=== PATIENT | male | born 2000 | race Caucasian/White ===

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

== ENCOUNTER 2022-05-08 09:24 | Emergency (ER) | payer OTHER ==
[~2022-05-08] VITALS: Ht 160 cm; Wt 57.6 kg
== END 2022-05-08 14:15 | disposition home or self-care (01) ==
LOC: EMR PED 09:24
DX: A90 Dengue fever [classical dengue] (principal); J02.9 Acute pharyngitis, unspecified; D69.6 Thrombocytopenia, unspecified; R05.9 Cough, unspecified; Z20.822 Contact with and (suspected) exposure to COVID-19

== ENCOUNTER 2022-11-13 12:01 | Emergency (ER) | payer OTHER ==
[~2022-11-13] VITALS: Ht 165.1 cm; Wt 61.2 kg
[2022-11-13] MEDS ORDERED: ADVIL DUAL ACT1 EACH PO (22:00)
[2022-11-13] MEDS ORDERED: BENADRYL25 MG PO (22:00)
== END 2022-11-13 22:11 | disposition home or self-care (01) ==
LOC: EMR PED 12:01
DX: R51.9 Headache, unspecified (principal); Z20.822 Contact with and (suspected) exposure to COVID-19

== ENCOUNTER 2024-02-28 13:35 | Emergency (ER) | payer OTHER ==
[~2024-02-28] VITALS: Ht 162.6 cm; Wt 59.0 kg
[~2024-02-28 13:35] MED LIST changes: +ADVIL DUAL ACT1 EACH PO; +BENADRYL25 MG PO
[2024-02-28] MEDS ORDERED: KEPPRA1000 MG (14:37)
[2024-02-28] MEDS ORDERED: KEPPRA500 MG (14:37)
[2024-02-28] MEDS ORDERED: DEXAMETHASONE SODIUM PHOSPHATE 4 MG/ML VIAL IM ONE (18:30)
[2024-02-28] MEDS ORDERED: ORPHENADRINE CITRATE 30 MG/ML AMPUL IM ONE (18:30)
[2024-02-28] MEDS ORDERED: KETOROLAC TROMETHAMINE 60 MG VIAL IM ONE (18:30)
== END 2024-02-28 21:42 | disposition home or self-care (01) ==
LOC: ER 13:35
DX: M54.50 Low back pain, unspecified (principal); G40.802 Other epilepsy, not intractable, without status epilepticus